=== PATIENT | female | born 1955 | race Caucasian/White ===

== ENCOUNTER 2019-07-06 13:07 | Outpatient (CLI) | payer BC ==
--- NOTE | 2019-07-06 16:17 | MRI ---
MRI CERVICAL SPINE WITHOUT CONTRAST ENHANCEMENT: HISTORY: Cervical radiculopathy. Right shoulder pain. FINDINGS: The vertebral bodies are normal in height. Disk space height appears fairly well maintained. Cord sig nal change is normal. C2-C3: Unremarkable. C3-C4: Unremarkable. C4-C5: Unremarkable. C5-C6: There is disk bulge at this level. There are some mild facet and uncovertebral changes and the re is a mild to moderate degree of right-sided foraminal narrowing. C6-C7: No significant canal or foraminal stenosis at this level. C7-T1: Unremarkable. IMPRESSION: 1. Mild right-sided foraminal narrowing at the C5-C6 level. 2. Slightly asymmetric right uncovertebral changes are noted. POS: [facility]
--- NOTE | 2019-07-06 16:51 | MRI ---
RIGHT SHOULDER MRI WITHOUT IV CONTRAST: Date: 07/06/19 HISTORY: Right shoulder impingement syndrome, pain. FINDINGS: Multiplanar, multisequence MRI examination of the right shoulder is performed. There are some AC join t arthrosis changes with minimal fluid in the subacromial/subdeltoid burs. There is a mid-grade under surface partial thickness tear of the infraspinatus at the insertion. There is also an undersurface a nd minimally delaminating tear of the infraspinatus extending to the myotendinous junction. Subscapul kendrick tendons and biceps tendons appear intact. Rotator cuff muscles are within normal limits of signa l and volume. There is slight blunting of the posterior superior labrum. No acute osteochondral defec t. IMPRESSION: Partial thickness tears of the supraspinatus and infraspinatus tendons without complete full thicknes s or retracted tear. Blunting of the posterior superior labrum, probably degenerative. POS: [facility]
== END 2019-07-06 13:08 | disposition home or self-care (01) ==
LOC: SCSMRI 13:07
PROVIDERS: ATTEND Orthopaedic Surgery
DX: M75.41 Impingement syndrome of right shoulder (principal); M54.12 Radiculopathy, cervical region; M75.111 Incomplete rotator cuff tear or rupture of right shoulder, not specified as traumatic; S46.811A Strain of other muscles, fascia and tendons at shoulder and upper arm level, right arm, initial encounter; M48.02 Spinal stenosis, cervical region
CPT/HCPCS: 72141